=== PATIENT | male | born 1950 | race African-American/Black ===

== ENCOUNTER 2019-05-23 20:40 | Emergency (ER) | payer MEDICAID ==
[~2019-05-23] VITALS: Ht 177.8 cm; Wt 107.0 kg
[~2019-05-23 20:40] MED LIST: ASPI81TA47 PO; CLON0.1T PO; LATA7.5D EACHEYE; LOSA50TA41 PO; TIMO5DRO32 EACHEYE
[2019-05-23] MEDS ORDERED: SODIUM CHLORIDE 0.9% 1,000 ML IV ONE (22:46)
[2019-05-23 23:23] LABS: BASOPHILS % 0.5 % (0.0-2.0); EOSINOPHILS % 0.9 % (0.0-5.0); HEMATOCRIT. 47.6 % (42.0-52.0); HEMOGLOBIN. 15.4 g/dL (14.0-18.0); LYMPHOCYTES % 10.8 % (20.0-50.0); MEAN CORPUSCULAR HEMOGLOBIN 25.3 pg (28.0-32.0); MEAN CORPUSCULAR VOLUME 78.1 fL (80.0-94.0); MEAN PLATELET VOLUME 9.7 fl (7.4-10.4); MONOCYTES % 5.2 % (2.0-8.0); NEUTROPHILS % 82.6 % (40.0-76.0); PLATELET 170 x1000/uL (130-400); RED CELL DISTRIBUTION WIDTH 15.7 % (11.6-14.6)
[2019-05-23 23:27] LABS: CHLORIDE 103 mEq/L (98-107)
[2019-05-24 01:18] VITALS: BP 126/80
== END 2019-05-24 01:19 | disposition home or self-care (01) ==
LOC: ER 23:41
DX: R42 Dizziness and giddiness (principal); I95.9 Hypotension, unspecified; I10 Essential (primary) hypertension; H40.9 Unspecified glaucoma; Z85.9 Personal history of malignant neoplasm, unspecified; Z79.82 Long term (current) use of aspirin; Z79.899 Other long term (current) drug therapy
CPT/HCPCS: 36415; 70450; 71045; 80053; 84484; 85025; 93005; 96360; 96361; 99285; J7030